=== PATIENT | female | born 1980 | race Caucasian/White ===

== ENCOUNTER 2016-02-22 10:49 | Emergency (ER) | payer OTHER ==
[2016-02-22 11:04] VITALS: BP 111/71
--- NOTE | 2016-02-22 12:24 | UC ---
Allergic Reaction HPI - HPI Summary HPI Summary: Patient started taking FYCOMPA on 02/06/16 but she recently increased the dosing (it is a seizure medication). She has had 2 doses of the increased strength. She now has a rash on her torso and says that her mouth feels swollen. She denies difficulty breathing or wheezing.They are trying to wean her off of topiramate bc she has kidney stones. she has had the same allergic reaction to svereal other anti-seizure meds. It is treated with benadryl usually with good results. She last took benadryl 5-6 hrs ago and rash ahs cleared. she does still have itching. she does not feel swelling in mouth currently. She called her neurologist Dr Hammond who advised her to come here to confirm allergic reaction and treat it. They will be adjusting her seizure meds. - History of Current Complaint Chief Complaint: UCSkin Stated Complaint: ALLERGIC REACTION-SKIN Time Seen by Provider: 02/22/16 12:21 Hx Last Menstrual Period: 10/26/15 - Allergies/Home Medications Allergies/Adverse Reactions: Allergies Allergy/AdvReac Type Severity Reaction Status Date / Time Aspirin Allergy Severe THROAT Verified 11/04/13 20:15 SWELLLS, RASH Cefaclor [From Ceclor] Allergy Severe THROAT Verified 11/04/13 20:15 SWELLS, RASH Cinnamon Allergy Severe RASH AND Verified 11/04/13 20:15 THROAT SWELLS. Clobazam [From Onfi] Allergy See Comment Verified 11/19/15 19:30 Lamotrigine Allergy See Comment Verified 11/19/15 19:30 Penicillins Allergy RASH AND Verified 11/04/13 20:15 THROAT SWELLS Home Medications: Home Medications [id number] [Butalbital/APAP/Caffeine 50-300-40 mg] 1 cap PO Q6HR PRN 02/22/16 [History Confirmed 02/22/16] PMH/Surg Hx/FS Hx/Imm Hx Previously Healthy: Yes Endocrine History Of: Denies: Diabetes Cardiovascular History Of: Denies: Hypertension, Pacemaker/ICD Respiratory History Of: Reports: Asthma - Surgical History Surgical History: Yes Surgery Procedure, Year, and Place: TUBAL LIGATION. APPENDECTOMY. DENTAL EXTRACTIONS - Family History Known Family History: Negative: Cardiac Disease - BROTHER HAS HEART MURMUR, Hypertension, Diabetes - Social History Alcohol Use: None Substance Use Type: None Smoking Status (MU): Never Smoked Tobacco Review of Systems Constitutional: Negative Skin: Rash Eyes: Negative ENT: Negative, Other - mouth feels swollen. adentulous Respiratory: Negative Cardiovascular: Negative Gastrointestinal: Negative Genitourinary: Negative Motor: Negative Neurovascular: Negative Musculoskeletal: Negative Neurological: Negative Psychological: Negative All Other Systems Reviewed And Are Negative: Yes Physical Exam Triage Information Reviewed: Yes Appearance: Well-Appearing, No Pain Distress, Thin Vital Signs: Initial Vital Signs Temp 98.5 F 02/22/16 11:00 Pulse 90 02/22/16 11:00 Resp 16 02/22/16 11:00 BP 111/71 02/22/16 11:00 Pulse Ox 100 02/22/16 11:00 Vital Signs Reviewed: Yes Eye Exam: Normal ENT Exam: Normal ENT: Positive: Hearing grossly normal, Pharynx normal, Other: - no swelling of lips, togue, OP or uvula. voice is nml, adentulous.. Negative: Nasal congestion Dental Exam: Other - adentulous Neck exam: Normal Neck: Positive: Supple, Nontender, No Lymphadenopathy Respiratory Exam: Normal Respiratory: Positive: Lungs clear, Normal breath sounds, No respiratory distress, No accessory muscle use. Negative: Crackles, Rhonchi, Stridor, Wheezing Cardiovascular Exam: Normal Cardiovascular: Positive: RRR, No Murmur, Pulses Normal, Brisk Capillary Refill Abdomen Description: Positive: Nontender, Soft Bowel Sounds: Positive: Present Musculoskeletal Exam: Normal Neurological Exam: Normal Psychological Exam: Normal Skin Exam: Normal - no rashes seen, no signs of excoriation. checked arms, legs , neck, face, back, legs. she is not itching at all during visit. Allergic Reaction Course/Dx - Course Course Of Treatment: There is no rash or any signs of allergic reaction at the time of the visit 5-6 hours after taking benadryl. This doesnt mean that there isnt an allergic reaction because benadryl is managing this. treat with prednisone. We discusse risks of prednisone including but not limited to anxiety , agitation, insomnia, GI upset, elevated blood pressures and blood sugar readings, adrenal crisis and avascular necrosis of the hip. - Differential Dx/Diagnosis Differential Diagnosis/HQI/PQRI: Anaphylaxis, Angioedema, Bronchospasm, Urticaria Provider Diagnoses: rash, seizure disorder Discharge - Discharge Plan Condition: Stable Disposition: HOME Prescriptions: Cetirizine HCl [Zyrtec Allergy] 10 mg PO Q24HR #14 tab Methylprednisolone [Medrol Dosepak 4 MG*] 4 mg PO DAILY #1 sonya Ranitidine HCl [Ranitidine Maximum Streng] 150 mg PO BID #28 tab Patient Education Materials: General Allergic Reaction (ED) Referrals: Christina HUSSEIN,Prasanth Arredondo [Primary Care Provider] - Additional Instructions: Please call your neurologist today to adjust your current seizure medication. If your allergic reaction symptoms worsen, you should immediately go to the ER via ambulance. Start the medications immediately.
== END 2016-02-22 13:00 | disposition home or self-care (01) ==
LOC: UCCORT 10:49
DX: R21 Rash and other nonspecific skin eruption (principal); G40.909 Epilepsy, unspecified, not intractable, without status epilepticus; Z87.442 Personal history of urinary calculi; Z88.6 Allergy status to analgesic agent; Z88.3 Allergy status to other anti-infective agents; Z88.0 Allergy status to penicillin; Z88.8 Allergy status to other drugs, medicaments and biological substances
CPT/HCPCS: 99212; G0463